=== PATIENT | female | born 1975 | race African-American/Black ===

== ENCOUNTER 2019-05-24 10:12 | Emergency (ER) | payer SELFPAY ==
[2019-05-24 10:18] VITALS: BP 116/72; PULSE 100; TEMP 98.6; BMI 35.9
[2019-05-24] MEDS ORDERED: morphine CARPU-JECT 4 MG/1 ML DISP.SYRIN IVPUSH ONE (10:54)
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
== END 2019-05-24 14:29 | disposition left against medical advice (07) ==
LOC: JER 10:12
DX: M79.605 Pain in left leg (principal)
CPT/HCPCS: 99281-25